=== PATIENT | male | born 1990 | race Caucasian/White ===

== ENCOUNTER 2020-04-04 14:00 | Emergency (ER) | payer MEDICAID, OTHER ==
[~2020-04-04] VITALS: Ht 167.6 cm; Wt 63.5 kg
[2020-04-04] MEDS ORDERED: cefTRIAXone W LIDOCAINE 1 GM IM IM ONE (14:45)
[2020-04-04] MEDS ORDERED: TETANUS-DIPTH-ACEL PERTUSSIS 0.5ML SYR Tdap IM ONE (14:45)
[2020-04-04] MEDS ORDERED: LIDOCAINE 1% HCL (LOCAL ANESTH.) INJ 20ML MDV ONE (15:40)
[2020-04-04 18:05] VITALS: BP 130/93
== END 2020-04-04 16:50 | disposition short-term general hospital (02) ==
LOC: ER 14:00 → EDBD 14:00 → ER 16:50
DX: S61.215A Laceration without foreign body of left ring finger without damage to nail, initial encounter (principal); Z89.022 Acquired absence of left finger(s); W26.8XXA Contact with other sharp object(s), not elsewhere classified, initial encounter; Y93.89 Activity, other specified; Y92.89 Other specified places as the place of occurrence of the external cause; Y99.8 Other external cause status
CPT/HCPCS: 12042; 73130; 90471; 90715; 96372; 99285; J0696; J2001

== ENCOUNTER 2022-05-11 15:55 | Emergency (ER) | payer MEDICAID ==
[~2022-05-11] VITALS: Ht 167.6 cm; Wt 69.0 kg
[~2022-05-11 15:55] MED LIST: CHL25C PO
[2022-05-11 17:29] VITALS: BP 123/73
[2022-05-11] MEDS ORDERED: IBUP800T27 PO (17:34)
[2022-05-11] MEDS ORDERED: KETOROLAC TROMETH 60MG/2ML VIAL IM ONE (17:45)
== END 2022-05-11 19:20 | disposition home or self-care (01) ==
LOC: ER 15:55
DX: S83.92XA Sprain of unspecified site of left knee, initial encounter (principal); F17.210 Nicotine dependence, cigarettes, uncomplicated; Z79.1 Long term (current) use of non-steroidal anti-inflammatories (NSAID); Z79.899 Other long term (current) drug therapy; W18.39XA Other fall on same level, initial encounter; Y93.89 Activity, other specified; Y92.89 Other specified places as the place of occurrence of the external cause; Y99.8 Other external cause status
CPT/HCPCS: 29505; 73562; 96372; 99283; J1885

== ENCOUNTER 2024-02-07 15:29 | Emergency (ER) | payer MEDICAID ==
[~2024-02-07] VITALS: Ht 167.6 cm; Wt 65.9 kg
[~2024-02-07 15:29] MED LIST changes: +IBUP-1456 PO
[2024-02-07 17:34] VITALS: BP 151/112; PULSE 106; RESP 16; TEMP 97.1; O2SAT 98
[2024-02-07] MEDS ORDERED: NAPR-746 PO (17:38)
[2024-02-07] MEDS ORDERED: ACET500T58 PO (17:38)
== END 2024-02-07 17:44 | disposition home or self-care (01) ==
LOC: ER 15:29
DX: S83.92XA Sprain of unspecified site of left knee, initial encounter (principal); F17.210 Nicotine dependence, cigarettes, uncomplicated; F12.10 Cannabis abuse, uncomplicated; W18.09XA Striking against other object with subsequent fall, initial encounter; Y93.89 Activity, other specified; Y92.89 Other specified places as the place of occurrence of the external cause; Y99.8 Other external cause status
CPT/HCPCS: 29505; 73562

== ENCOUNTER 2024-09-06 20:12 | Emergency (ER) | payer MEDICAID ==
[~2024-09-06] VITALS: Ht 167.6 cm; Wt 65.0 kg
[~2024-09-06 20:12] MED LIST changes: +ACET500T58 PO; +NAPR-746 PO
--- NOTE | 2024-09-06 20:34 | ED.PDOC ---
Epistaxis- HPI HPI Comments 33-year-old male who came to ER for epistaxis. Patient states for the past few hours he has been having left-sided epistaxis. Denies any prior history of epistaxis. Denies any recent trauma, however he admits that he snorted methamphetamines 2 days ago. Chief Complaint: Epistaxis Time Seen by MD: 20:33 Primary Care Provider: Jemima Mena Notes: Nurses Notes Allergies: Coded Allergies: NO KNOWN ALLERGIES (Unverified , 04/04/20) Home Meds Active Scripts Amlodipine Besylate (Amlodipine Besylate) 5 Mg Tab, 1 TAB PO DAILY for 60 Days, #60 TAB 5 Refills Prov:RANGEL GUERRA MD 09/06/24 Cephalexin (KEFLEX CAPSULE) 250 Mg Cp, 250 MG PO BID for 7 Days, #14 TAB Prov:RANGEL GUERRA MD 09/06/24 Acetaminophen (Acetaminophen) 500 Mg Tab, 500 MG PO QIDP for 10 Days, #40 TAB 0 Refills Prov:RIYA RIDDLE CUSTOM BIKE BUILDER 02/07/24 Naproxen (Naproxen) 500 Mg Tab, 500 MG PO BIDPC for 21 Days, #42 TAB 0 Refills Prov:RIYA RIDDLE CUSTOM BIKE BUILDER 02/07/24 Ibuprofen (Ibuprofen) 800 Mg Tab, 1 TAB PO TID PRN, #30 TAB 0 Refills Prov:VINAY BABIN 05/11/22 Chlordiazepoxide Hcl (Librium) 25 Mg Cp, 25 MG PO Q6HPRN PRN, #20 CAP Prov:DIONNA ODONNELL DO 04/17/22 Information Source: Patient Mode of Arrival: Ambulatory Severity: Streaking, Bleeding Uncontrolled Timing: Hours Duration: Since onset Location: Left naris Mechanism: Spontaneous onset Circumstances: Other (Snorting methamphetamine) History of: None Nose: Swelling, Ecchymosis Nose: Intranasal/Septum: Blood Bleeding Status: Active bleeding Bleeding Amount: Moderate Source: Left Associated signs and symptoms: None Past Medical History PAST MEDICAL HISTORY: Denies Surgical History: Denies all surgeries Family History Family History: Reviewed,noncontributory to illness Social History Smoker: Cigarettes, Less Than 1 Pack/Day Alcohol: Occasionally Drugs: Marijuana, Methamphetamine Lives In: Home Constitutional: denies: chills, diaphoresis, fatigue, fever, malaise, sweats, weakness, others EENTM: reports: nose bleeding (Left); denies: blurred vision, double vision, ear bleeding, ear discharge, ear drainage, ear pain, ear ringing, eye pain, eye redness, hearing loss, mouth pain, mouth swelling, nasal discharge, nose congestion, nose pain, photophobia, tearing, throat pain, throat swelling, voice changes, others Respiratory: denies: cough, hemoptysis, orthopnea, SOB at rest, shortness of breath, SOB with excertion, stridor, wheezing, others Cardiovascular: denies: chest pain, dizzy spells, diaphoresis, Dyspnea on exertion, edema, irregular heart beat, left arm pain, lightheadedness, palpitations, PND, syncope, others Gastrointestinal: denies: abdomen distended, abdominal pain, blood streaked bowels, constipated, diarrhea, dysphagia, difficulty swallowing, hematemesis, melena, nausea, poor appetite, poor fluid intake, rectal bleeding, rectal pain, vomiting, others Genitourinary: denies: burning, dysuria, flank pain, frequency, hematuria, incontinence, penile discharge, penile sore, pain, testicle pain, testicle swelling, urgency, others Neurological: denies: dizziness, fainting, headache, left sided numbness, left sided weakness, numbness, paresthesia, pre-existing deficit, right sided numbness, right sided weakness, seizure, speech problems, tingling, tremors, weakness, others Musculoskeletal: denies: back pain, gout, joint pain, joint swelling, muscle pain, muscle stiffness, neck pain, others Integumetry: denies: bruises, change in color, change in hair/nails, dryness, laceration, lesions, lumps, rash, wounds, others Allergic/Immunocompromised: denies: Difficulty Healing, Frequent Infections, Hives, Itching, others Hematologic/Lymphatic: denies: anemia, blood clots, easy bleeding, easy bruising, swollen glands, others Endocrine: denies: excessive hunger, excessive sweating, excessive thirst, excessive urination, flushing, intolerance to cold, intolerance to heat, unexplained weight gain, unexplained weight loss, others Psychiatric: denies: anxiety, bipolar disorder, depression, hopeless, panic d isorder, schizophrenia, sleepless, suicidal, others Physical Exam General Appearance: No Apparent Distress, Normal HEENT: Normal ENT Inspection, Pharynx Normal, TMs Normal Neck: Full Range of Motion, Non-Tender, Normal, Normal Inspection Respiratory: Chest Non-Tender, Lungs Clear, No Accessory Muscle Use, No Respiratory Distress, Normal Breath Sounds Cardiovascular: No Edema, No JVD, No Murmur, No Gallop, Normal Peripheral Pulses, Regular Rate/Rhythm Breast Exam: Deferred Gastrointestinal: No Organomegaly, Non Tender, No Pulsatile Mass, Normal Bowel Sounds, Soft Genitalia: Deferred Pelvic: Deferred Rectal: Deferred Extremities: No calf tenderness, Normal capillary refill, Normal inspection, Normal range of motion, Non-tender, No pedal edema Musculoskeletal : Apperance: Normal Neurologic: Alert, dip guider stoves II-XII nml as Tested, No Motor Deficits, Normal Affect, Normal Mood, No Sensory Deficits Cerebellar Function: Normal Reflexes: Normal Skin: Dry, Normal Color, Warm Lymphatic: No Adenopathy Was a procedure done? Was a procedure done?: Yes Sedation Sedation?: No Nasal Cautery and Pack Indicaton: Anterior epitaxis Hemostasis: Was obtained Location of packing: Left Packing: Inflatable balloon Informed consent obtained: Yes Risks/benefits/alt described: Yes Differential Diagnosis (NSB) Differential Diagnosis: Anterior Nasal Bleed, Posterior Nasal Bleed X-Ray, Labs, Meds, VS Vital Signs Date Time Temp Pulse Resp B/P (MAP) Pulse Ox O2 Delivery O2 Flow Rate FiO2 09/06/24 22:56 151/103 09/06/24 22:49 Room Air* 0 21 09/06/24 22:49 97.4 105 18 151/103 (119) 97 97.4 09/06/24 20:35 97.8 129 20 148/103 (118) 97 Time of 1ST Reevaluation: 20:31 Reevaluation 1ST: Unchanged Time of 2ND Reevaluation: 22:00 Reevaluation 2ND: Improved Patient Education/Counseling: Diagnosis, Treatment Family Education/Counseling: No Family Present Departure 1 Departure Time of Disposition: 22:30 Impression: Primary Impression: Acute anterior epistaxis Additional Impression: Methamphetamine use Disposition: 01 HOME / SELF CARE / HOMELESS Condition: Stable e-Prescriptions Amlodipine Besylate (Amlodipine Besylate) 5 Mg Tab 1 TAB PO DAILY for 60 Days, #60 TAB 5 Refills Prov: RANGEL GUERRA MD 09/06/24 Cephalexin (KEFLEX CAPSULE) 250 Mg Cp 250 MG PO BID for 7 Days, #14 TAB Prov: RANGEL GUERRA MD 09/06/24 Discharged With: Self Critical Care Note Critical Care Time?: No Stability Stability form required: No Heart Score Heart Score: Heart Score Response (Comments) Value History N/A 0 EKG N/A 0 Age N/A 0 Risk Factors N/A 0 Troponin N/A 0 Total 0 I personally scribed for RANGEL GUERRA MD ([email or web address]) on 09/06/24 at 20:34. Electronically submitted by Yoni Talbert ([email or web address]). RANGEL GUERRA MD Sep 06, 2024 20:34
[2024-09-06] MEDS ORDERED: CEPH250C PO (20:51)
[2024-09-06] MEDS ORDERED: AMLO1TAB22 PO (20:51)
[2024-09-06 22:49] VITALS: BP 151/103; PULSE 105; RESP 18; TEMP 97.4; O2SAT 97
[2024-09-06] MEDS: cloNIDine HCL 0.1 MG TAB PO ONE (22:56)
== END 2024-09-06 23:05 | disposition home or self-care (01) ==
LOC: ER 20:12
DX: R04.0 Epistaxis (principal); F15.10 Other stimulant abuse, uncomplicated; F17.210 Nicotine dependence, cigarettes, uncomplicated; F12.10 Cannabis abuse, uncomplicated
CPT/HCPCS: 30901

== ENCOUNTER 2024-09-09 08:26 | Emergency (ER) | payer MEDICAID ==
[~2024-09-09] VITALS: Ht 167.6 cm; Wt 65.0 kg
[~2024-09-09 08:26] MED LIST changes: +AMLO1TAB22 PO; +CEPH250C PO
--- NOTE | 2024-09-09 08:43 | ED.PDOC ---
History of Present Illness HPI Comments This 34-year-old male was seen 3 days ago secondary to nosebleed. He had a nasal dressing placed into the left naris/rhino rocket. Since that time, he states it has been uncomfortable but denies any new bleeds. He has no other complaints such as fever, chills, sweats, nausea or vomiting. Denies any other palliative provocative factors. Denies modifying factors. Denies radiation of symptoms. Denies pain Chief Complaint: Wound Check Time Seen by MD: 08:42 Primary Care Provider: Jemima Ch Allergies: Coded Allergies: NO KNOWN ALLERGIES (Unverified , 04/04/20) Home Meds Active Scripts Amlodipine Besylate (Amlodipine Besylate) 5 Mg Tab, 1 TAB PO DAILY for 60 Days, #60 TAB 5 Refills Prov:RANGEL GUERRA MD 09/06/24 Cephalexin (KEFLEX CAPSULE) 250 Mg Cp, 250 MG PO BID for 7 Days, #14 TAB Prov:RANGEL GUERRA MD 09/06/24 Acetaminophen (Acetaminophen) 500 Mg Tab, 500 MG PO QIDP for 10 Days, #40 TAB 0 Refills Prov:RIYA RIDDLE QUARRY SUPERVISOR 02/07/24 Naproxen (Naproxen) 500 Mg Tab, 500 MG PO BIDPC for 21 Days, #42 TAB 0 Refills Prov:RIYA RIDDLE QUARRY SUPERVISOR 02/07/24 Ibuprofen (Ibuprofen) 800 Mg Tab, 1 TAB PO TID PRN, #30 TAB 0 Refills Prov:VINAY BABIN 05/11/22 Chlordiazepoxide Hcl (Librium) 25 Mg Cp, 25 MG PO Q6HPRN PRN, #20 CAP Prov:DIONNA ODONNELL DO 04/17/22 Mode of Arrival: Ambulatory Past Medical History PAST MEDICAL HISTORY: Denies Surgical History: Denies all surgeries Family History Family History: Reviewed,noncontributory to illness Social History Smoker: Cigarettes, Less Than 1 Pack/Day Alcohol: Occasionally Drugs: Marijuana, Methamphetamine Lives In: Home Physical Exam General Appearance: No Apparent Distress, Normal HEENT: Normal ENT Inspection, Pharynx Normal, Other (Packing and left near) Neck: Normal, Supple Respiratory: Chest Non-Tender, Lungs Clear, No Accessory Muscle Use, No Resp iratory Distress, Normal Breath Sounds Cardiovascular: No Edema, No JVD, No Murmur, No Gallop, Normal Peripheral Pulses, Regular Rate/Rhythm Breast Exam: Deferred Gastrointestinal: Non Tender, Soft Genitalia: Deferred Pelvic: Deferred Rectal: Deferred Extremities: None, No pedal edema Neurologic: NOT DONE Cerebellar Function: NOT DONE Reflexes: NOT DONE Skin: None, Normal Color Lymphatic: NOT DONE Was a procedure done? Was a procedure done?: Yes Sedation Sedation?: No Informed consent obtained: No Sedation start time: 09:06 Sedation end time: 09:06 Arterial Puncture Risks/benefits/alt described: Yes Notes Rhino rocket removed from left naris without difficulty Differential Dx Considerations may include: Anterior plexus bleed, posterior plexus bleed, trauma, cancer X-Ray, Labs, Meds, VS Vital Signs Date Time Temp Pulse Resp B/P (MAP) Pulse Ox O2 Delivery O2 Flow Rate FiO2 09/09/24 08:29 98.5 98 17 154/103 (120) 98 Time of 1ST Reevaluation: 09:10 Reevaluation 1ST: Resolved Patient Education/Counseling: Diagnosis, Treatment Family Education/Counseling: No Family Present Departure 1 Departure Time of Disposition: 09:07 Impression: Primary Impression: Acute anterior epistaxis Disposition: 01 HOME / SELF CARE / HOMELESS Condition: Good Discharged With: Self Critical Care Note Critical Care Time?: No Stability Stability form required: No Heart Score Heart Score: Heart Score Response (Comments) Value History N/A 0 EKG N/A 0 Age N/A 0 Risk Factors N/A 0 Troponin N/A 0 Total 0 DYLAN SHANNON MD Sep 09, 2024 08:43
[2024-09-09 09:03] VITALS: BP 149/85; PULSE 107; RESP 18; TEMP 98.1; O2SAT 99
== END 2024-09-09 09:16 | disposition home or self-care (01) ==
LOC: ER 08:26
DX: R04.0 Epistaxis (principal); F17.210 Nicotine dependence, cigarettes, uncomplicated; F12.10 Cannabis abuse, uncomplicated; F15.10 Other stimulant abuse, uncomplicated